=== PATIENT | female | born 1995 | race Hispanic/Latino ===

== ENCOUNTER 2022-05-16 14:18 | Outpatient (CLI) | payer OTHER | END 2022-05-16 14:19 | disposition home or self-care (01) | LOC: CSHULT 14:18 | PROVIDERS: ATTEND Family Medicine | DX: O09.892 Supervision of other high risk pregnancies, second trimester (principal); Z3A.19 19 weeks gestation of pregnancy | CPT/HCPCS: 76805 ==

== ENCOUNTER 2022-08-18 22:10 | Day surgery (SDC) | payer OTHER ==
[2022-08-18 22:52] VITALS: BMI 50.3
[2022-08-18 23:29] LABS: Fetal Membranes Rupture No Membranes Rupture (No Rupture)
[2022-08-19] MEDS ORDERED: hydrALAZINE 20 MG/ML VIAL SLOW IVP PRN (00:04)
== END 2022-08-19 01:00 | disposition home or self-care (01) ==
LOC: CSHLD/OP 22:10
PROVIDERS: ATTEND Family Medicine
DX: Z03.71 Encounter for suspected problem with amniotic cavity and membrane ruled out (principal); O23.593 Infection of other part of genital tract in pregnancy, third trimester; B37.31 Acute candidiasis of vulva and vagina; A59.01 Trichomonal vulvovaginitis; Z79.899 Other long term (current) drug therapy; Z87.59 Personal history of other complications of pregnancy, childbirth and the puerperium; Z3A.33 33 weeks gestation of pregnancy
CPT/HCPCS: 84112; 87480; 87510; 87660; 99285

== ENCOUNTER 2024-12-08 22:46 | Emergency (ER) | payer OTHER, SELFPAY ==
[2024-12-09] MEDS ORDERED: Erythromycin Base 0.5% Oint 1 GM TUBE ONE (00:53)
== END 2024-12-09 01:00 | disposition home or self-care (01) ==
LOC: CSHERS 22:46
DX: H10.9 Unspecified conjunctivitis (principal)

== ENCOUNTER 2025-03-12 08:12 | Emergency (ER) | payer SELFPAY | END 2025-03-12 10:00 | disposition home or self-care (01) | LOC: CSHERS 08:12 | DX: A08.4 Viral intestinal infection, unspecified (principal) | CPT/HCPCS: 96372; 99283; Q0162 ==